=== PATIENT | male | born 1970 | race Hispanic/Latino ===

== ENCOUNTER 2020-12-14 09:41 | Emergency (ER) | payer OTHER | END 2020-12-14 10:40 | disposition home or self-care (01) | LOC: ERS 09:41 | DX: U07.1 COVID-19 (principal); J12.82 Pneumonia due to coronavirus disease 2019 | CPT/HCPCS: 71045; 93005 ==

== ENCOUNTER 2020-12-16 15:36 | Inpatient (IN) | payer SELFPAY ==
[~2020-12-16 15:36] MED LIST: Iopamidol-370 76% 500 ML 1 ML ONE
[2020-12-16] MEDS ORDERED: Azithromycin 500 MG VIAL ONE (16:16)
[2020-12-16] MEDS ORDERED: Dexamethasone 10 MG/ML VIAL ONE (16:17)
[2020-12-16] MEDS ORDERED: Aspirin 81 mg Enteric Coated Tablet ONE (16:17)
[2020-12-16] MEDS ORDERED: cefTRIAXone\\ROCEPHIN 2 GM VIAL ONE (16:17)
[2020-12-16 16:42] LABS: Hemoglobin 16.1 g/dL (14.0-18.0); Mean Corpuscular HGB CONC 33.6 g/dL (32.0-36.0); Mean Corpuscular Hemoglobin 30.4 pg (27.0-31.0); Mean Corpuscular Volume 90.3 fL (78.0-98.0); Mean Platelet Volume 7.9 fL (7.4-10.4); Platelet Count 490 thou/uL (130-400); RBC Distribution Width 12.3 % (11.5-14.5)
[2020-12-16 16:46] LABS: ALT (SGPT) 76 U/L (8-55); AST (SGOT) 34 U/L (5-34); Albumin 3.3 g/dL (3.5-5.0); Alkaline Phosphatase 72 U/L (40-110); Anion Gap 11 mmol/L (10-20); BUN (Urea Nitrogen) 17 mg/dL (8.4-25.7); Bilirubin, Total 0.5 mg/dL (0.2-1.2); CK (CPK) 74 U/L (30-200); Calc. Creatinine Clearance 0 mL/min (70-130); Calcium 8.5 mg/dL (7.8-10.44); Carbon Dioxide 23 mmol/L (22-29); Chloride 106 mmol/L (98-107); Glucose 159 mg/dL (70-105); Potassium 3.8 mmol/L (3.5-5.1); Protein, Total 7.3 g/dL (6.0-8.3); Sodium 136 mmol/L (136-145)
[2020-12-16 16:47] LABS: Lymphocytes 18 % (21-51); MDiff Complete? YES; Monocytes 6 % (0-10); Neutrophil 75 % (42-75); Platelet Morphology Comment Appears Increased; RBC Morphology Normal; Reactive Lymphocytes 1 % (0-10); White Blood Cell (WBC) Count 6.9 thou/uL (4.8-10.8)
[2020-12-16] MEDS ORDERED: Enoxaparin Sodium 100 MG/ML SYRINGE ONE (16:48)
[2020-12-16] MEDS ORDERED: Senokot S 8.6-50 MG TAB PO PRN (18:03)
[2020-12-16] MEDS ORDERED: Ondansetron PF 4 MG/2 ML Vial IVP PRN (18:03)
[2020-12-16] MEDS ORDERED: Acetaminophen 325 MG TAB PO PRN (18:03)
[2020-12-16] MEDS ORDERED: hydrALAZINE 20 MG/ML VIAL SLOW IVP PRN (18:21)
[2020-12-16] MEDS ORDERED: Melatonin 3 MG TAB PO PRN (18:21)
[2020-12-16 19:41] LABS: Troponin I Less than 0.010 ng/mL (< 0.028)
[2020-12-16 20:13] LABS: SARS-CoV-2 NAA Rapid Test DETECTED (NotDetected)
[2020-12-16 22:40] LABS: Troponin I Less than 0.010 ng/mL (< 0.028)
[2020-12-17 06:55] LABS: #Lymphocytes 0.8 thou/uL (1.20-3.40); #Monocytes 0.5 thou/uL (0.11-0.59); #Neutrophils 5.2 thou/uL (1.40-6.50); %Eosinophils 0.3 % (0.0-10.0); %Lymphocytes 12.7 % (21.0-51.0); %Monocytes 7.9 % (0.0-10.0); %Neutrophils 79.1 % (42.0-75.0); Hemoglobin 15.8 g/dL (14.0-18.0); Mean Corpuscular Hemoglobin 30.1 pg (27.0-31.0); Mean Corpuscular Volume 91.2 fL (78.0-98.0); Platelet Count 495 thou/uL (130-400); RBC Distribution Width 12.4 % (11.5-14.5); Red Blood Cell (RBC) Count 5.24 mill/uL (4.70-6.10); White Blood Cell (WBC) Count 6.6 thou/uL (4.8-10.8)
[2020-12-17 07:09] LABS: ALT (SGPT) 68 U/L (8-55); AST (SGOT) 30 U/L (5-34); Albumin 3.2 g/dL (3.5-5.0); Alkaline Phosphatase 67 U/L (40-110); Anion Gap 15 mmol/L (10-20); BUN (Urea Nitrogen) 14 mg/dL (8.4-25.7); Bilirubin, Total 0.4 mg/dL (0.2-1.2); Calc. Creatinine Clearance 173 mL/min (70-130); Calcium 8.6 mg/dL (7.8-10.44); Carbon Dioxide 20 mmol/L (22-29); Chloride 106 mmol/L (98-107); Globulin 3.9 g/dL (2.4-3.5); Glucose 194 mg/dL (70-105); Potassium 4.6 mmol/L (3.5-5.1); Protein, Total 7.1 g/dL (6.0-8.3); Sodium 136 mmol/L (136-145)
[2020-12-17] MEDS: Aspirin 325 mg Enteric Coated Tablet PO SCH (08:11)
[2020-12-17] MEDS: Ascorbic Acid 500 mg Chewable Tablet PO SCH (08:11)
[2020-12-17] MEDS: Zinc Sulfate 220 MG CAP PO SCH (08:11)
[2020-12-17] MEDS: Dexamethasone 10 MG/ML VIAL SLOW IVP SCH (08:11)
[2020-12-17] MEDS: Cholecalciferol (Vitamin D3) 400 UNITS TAB PO SCH (08:11)
[2020-12-17] MEDS ORDERED: Aspirin 325 MG TAB PO SCH (09:00)
[2020-12-17] MEDS: Enoxaparin Sodium 40 MG/0.4 ML SYRINGE SC SCH (11:25)
[2020-12-17] MEDS ORDERED: cefTRIAXone\\ROCEPHIN 2 GM in Sodium Chloride 0.9% 100 ML IVPB SCH (16:00)
[2020-12-17] MEDS ORDERED: Azithromycin 500 MG in Sodium Chloride 0.9% 250 ML 250 ML IVPB SCH (18:00)
[2020-12-18] MEDS: Aspirin 325 mg Enteric Coated Tablet PO SCH (08:31)
[2020-12-18] MEDS: Zinc Sulfate 220 MG CAP PO SCH (08:31)
[2020-12-18] MEDS: Ascorbic Acid 500 mg Chewable Tablet PO SCH (08:31)
[2020-12-18] MEDS: Cholecalciferol (Vitamin D3) 400 UNITS TAB PO SCH (08:31)
[2020-12-18] MEDS: Enoxaparin Sodium 40 MG/0.4 ML SYRINGE SC SCH (08:32)
[2020-12-18] MEDS: Dexamethasone 10 MG/ML VIAL SLOW IVP SCH (08:32)
[2020-12-18] MEDS: Guaifenesin DM 100-10/5 ML UDCUP PO PRN ×2 (10:54→21:13)
[2020-12-19 05:14] VITALS: BMI 31.2
[2020-12-19] MEDS: Cholecalciferol (Vitamin D3) 400 UNITS TAB PO SCH (07:52)
[2020-12-19] MEDS: Aspirin 325 mg Enteric Coated Tablet PO SCH (07:52)
[2020-12-19] MEDS: Enoxaparin Sodium 40 MG/0.4 ML SYRINGE SC SCH (07:52)
[2020-12-19] MEDS: Ascorbic Acid 500 mg Chewable Tablet PO SCH (07:52)
[2020-12-19] MEDS: Dexamethasone 10 MG/ML VIAL SLOW IVP SCH (07:52)
[2020-12-19] MEDS: Zinc Sulfate 220 MG CAP PO SCH (07:52)
[2020-12-19 13:01] VITALS: BP 125/77; TEMP 97.7
[2020-12-23] MEDS ORDERED: Ergocalciferol 1.25 MG(50,000 UNITS) CAP PO SCH (09:00)
== END 2020-12-19 16:16 | disposition home or self-care (01) | DRG 177 ==
LOC: ERS 15:36 → T4-A 17:18
PROVIDERS: ADMIT Student in an Organized Health Care Education/Training Program; ATTEND Internal Medicine
PROC: 8E0ZXY6 Isolation (ICD-10-PCS; principal; 2020-12-16)
DX: U07.1 COVID-19 (principal); J12.82 Pneumonia due to coronavirus disease 2019; J96.01 Acute respiratory failure with hypoxia; D47.3 Essential (hemorrhagic) thrombocythemia; Z79.899 Other long term (current) drug therapy; Z79.52 Long term (current) use of systemic steroids
CPT/HCPCS: 36415; 71045; 71046; 71275; 80053; 82550; 82728; 83880; 84145; 84484; 85025; 85379; 86140; 93005; 94760; 96365; 96366; 96368; 96372; 96375; J0456; J0696; J1100; J1650; J3490; J7050; Q9967; U0002